=== PATIENT | male | born 1965 | race Hispanic/Latino ===

== ENCOUNTER 2017-11-28 13:38 | Day surgery (SDC) | payer BC ==
[~2017-11-28 13:38] MED LIST: ANCEF/STERILE WATER 2 GM/20 ML 2 GM/20 ML SYRINGE IV NR
[2017-11-28] MEDS ORDERED: NACL BACTERIOSTATIC INFILTRATI ONE (13:49)
[2017-11-28 14:16] LABS: Basophils % (Auto) 0.6 % (0.0-1.8); Eosinophils # (Auto) 0.1 K/mm3 (0.0-0.4); Eosinophils % (Auto) 1.9 % (0.0-4.3); Hematocrit 36.3 % (35.5-45.6); Hemoglobin 11.9 gm/dl (11.8-15.2); Lymphocytes # (Auto) 0.6 K/mm3 (1.2-5.4); Lymphocytes % (Auto) 12.1 % (13.4-35.0); Mean Corpuscular HGB Conc 33 % (32-34); Mean Corpuscular Hemoglobin 30 pg (28-32); Mean Corpuscular Volume 90 fl (84-94); Monocytes # (Auto) 0.6 K/mm3 (0.0-0.8); Monocytes % (Auto) 11.5 % (0.0-7.3); Red Blood Count 4.02 M/mm3 (3.65-5.03); Red Cell Distribution Width 15.1 % (13.2-15.2)
[2017-11-28 14:18] LABS: Platelet Count 60 K/mm3 (140-440)
[2017-11-28 14:31] LABS: Alanine Aminotransferase 26 units/L (7-56); Albumin 2.7 g/dL (3.9-5); BUN/Creatinine Ratio 23; Blood Urea Nitrogen 21 mg/dL (9-20); Calcium 8.4 mg/dL (8.4-10.2); Hemolysis Index 8
[2017-11-28 14:40] VITALS: BP 142/75
--- NOTE | 2017-11-28 14:58 | Anesthesia Consultation ---
Anesthesia Consult and Med Hx Date of service: 11/28/17 - Airway ROM Head & Neck: Adequate Mental/Hyoid Distance: Adequate Mallampati Class: Class III Intubation Access Assessment: Probably Good - Pulmonary Exam CTA: Yes - Cardiac Exam Cardiac Exam: RRR - Pre-Operative Health Status ASA Pre-Surgery Classification: ASA3 Proposed Anesthetic Plan: General - Pulmonary Hx Smoking: No Hx Sleep Apnea: No (CHUCK PRE SCREEN HIGH RISK) - Cardiovascular System Hx Hypertension: Yes (X 2 YRS) Hx Peripheral Vascular Disease: Yes (LEGS , ANGIOPLASTIES X 4) - Central Nervous System Hx Back Pain: Yes - Endocrine Hx Cirrhosis: Yes 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 Patient agrees to transfusion PRN) - Other Systems Hx Cancer: No
--- NOTE | 2017-11-28 14:58 | Anesthesia Day of Surgery ---
Anesthesia Day of Surgery - Day of Surgery Patient Examined: Yes Patient H&P Reviewed: Yes Patient is NPO: Yes
[2017-11-28] MEDS ORDERED: VERSED IV NR (15:00)
[2017-11-28] MEDS ORDERED: ZOFRAN IV PRN (15:00)
[2017-11-28] MEDS ORDERED: DILAUDID IV PRN (15:00)
[2017-11-28] MEDS ORDERED: NACL 0.9% 1000 ML 1,000 ML IV SCH (15:00)
[2017-11-28] MEDS ORDERED: PERCOCET 5/325 PO PRN (15:00)
[2017-11-28] MEDS ORDERED: DIPRIVAN 10 MG/ML IV ONE (15:06)
[2017-11-28] MEDS ORDERED: XYLOCAINE MPF 2% ONE (15:06)
[2017-11-28] MEDS ORDERED: SUBLIMAZE ONE (15:06)
== END 2017-11-28 16:02 | disposition home or self-care (01) ==
LOC: OR 13:38
PROVIDERS: ATTEND Urology
DX: R31.0 Gross hematuria (principal); I10 Essential (primary) hypertension; E11.9 Type 2 diabetes mellitus without complications; K74.60 Unspecified cirrhosis of liver; I73.9 Peripheral vascular disease, unspecified; Z88.2 Allergy status to sulfonamides; Z88.6 Allergy status to analgesic agent; Z53.8 Procedure and treatment not carried out for other reasons
CPT/HCPCS: 36415; 80053; 82962; 85025; J7030; J0690; J2704; J3010